=== PATIENT | female | born 1935 | race Caucasian/White ===

== ENCOUNTER 2016-08-20 11:22 | Day surgery (SDC) | payer MEDICARE, BC ==
--- NOTE | ~2016-08-20 | EGD ---
EGD REPORT [facility] [address] [id number] NAME: OMAYRA GARDINER : 39 STATUS : REG [facility]#: [id number] AGE: 81 ADM/REG DATE : 08/20/16 MR#: [id number] REPORT SERV DATE: 08/20/16 DICTATED BY: RITO FARMER DATE: 08/20/16 REPORT STATUS : Draft [facility]ANSCRIBED BY: [facility] DATE: 08/20/16 [facility] Patient Name: Omayra Gardiner Date of : 1935 Attending MD: RITO FARMER MD Procedure Date No Time: 08/20/2016 Procedure: Colonoscopy Indications: Screening for colorectal malignant neoplasm, Personal history of malignant neoplasm of the breast, Positive Cologuard test Referring MD: YOSELYN CARBALLO JR., MD Medicines: Propofol per Anesthesia Complications: No immediate complications. Estimated blood loss: None. Procedure: Pre-Anesthesia Assessment: - After reviewing the risks and benefits, the patient was deemed in satisfactory condition to undergo the procedure. - Prior to the procedure, a History and Physical was performed, and patient medications and allergies were reviewed. The patient's tolerance of previous anesthesia was also reviewed. The risks and benefits of the procedure and the sedation options and risks were discussed with the patient. All questions were answered, and informed consent was obtained. Prior Anticoagulants: The patient has taken no previous anticoagulant or antiplatelet agents. ASA Grade Assessment: II - A patient with mild systemic disease. After reviewing the risks and benefits, the patient was deemed in satisfactory condition to undergo the procedure. After I obtained informed consent, the scope was passed under direct vision. Throughout the procedure, the patient's blood pressure, pulse, and oxygen saturations were monitored continuously. The CF [id number] was introduced through the anus and advanced to the sigmoid colon but no further so it was withdrawn. The PCF [id number] was introduced through the anus and advanced to the cecum, identified by appendiceal orifice and ileocecal valve. The colonoscopy was performed with difficulty due to significant looping and a tortuous colon. Successful completion of the procedure was aided by withdrawing the scope and replacing with the pediatric colonoscope, straightening and shortening the scope to obtain bowel loop reduction and applying abdominal pressure. The ileocecal valve and appendiceal EGD REPORT [place] [id number] [facility]. [address] NAME: OMAYRA GARDINER : [birth year] STATUS : REG [facility]#: [id number] AGE: 81 ADM/REG DATE : 08/20/16 MR#: [id number] REPORT SERV DATE: 08/20/16 DICTATED BY: RITO FARMER DATE: 08/20/16 REPORT STATUS : Draft TRANSCRIBED BY: [employer] DATE: 08/20/16 orifice were photographed. The patient tolerated the procedure well. The quality of the bowel preparation was adequate. The bowel preparation used was split dose SUPREP. Scope withdrawal time was greater than 7 minutes. Findings: The perianal and digital rectal examinations were normal. Pertinent negatives include normal sphincter tone. Non-bleeding internal hemorrhoids were found during retroflexion and were small and Grade I (internal hemorrhoids that do not prolapse). Multiple small and large-mouthed diverticula were found in the entire colon. The exam was otherwise without abnormality. Impression: - Non-bleeding internal hemorrhoids. - Severe diverticulosis in the entire examined colon. - The examination was otherwise normal. Recommendation: - Discharge patient to home (ambulatory). - High fiber diet indefinitely. - Continue present medications. - No further routine screening colonoscopy due to advanced age. - Return to GI clinic PRN. - Patient has a contact number available for emergencies. The signs and symptoms of potential delayed complications were discussed with the patient. Return to normal activities tomorrow. Written discharge instructions were provided to the patient. Procedure Code(s): --- Professional --- G0121, Colorectal cancer screening; colonoscopy on individual not meeting criteria for high risk Diagnosis Code(s): --- Professional --- K64.0, First degree hemorrhoids K57.30, Diverticulosis of large intestine without perforation or abscess without bleeding Z12.11, Encounter for screening for malignant neoplasm of colon Z85.3, Personal history of malignant neoplasm of breast CPT copyright 2013 [employer]. All rights reserved. The codes documented in this report are preliminary and upon pre fabricator review may be revised to meet current compliance requirements. EGD REPORT [facility] [address] [address] NAME: OMAYRA GARDINER : 39 [place] : [place] [facility] [place] [id number] AGE: 81 ADM/REG DATE : 08/20/16 MR#: [id number] REPORT SERV DATE: 08/20/16 DICTATED BY: RITO FARMER DATE: 08/20/16 REPORT STATUS : Draft TRANSCRIBED BY: [employer] DATE: 08/20/16 RITO FARMER MD 08/20/2016 1:52 PM This report has been signed electronically. Number of Addenda: 0 Note Initiated On: 08/20/2016 12:01 PM Scope Withdrawal Time 0 hours 7 minutes 46 seconds [address] [id number]
[~2016-08-20 11:22] MED LIST: LEXAPRO5 MG PO; SEV VITAMINS PO
== END 2016-08-20 23:59 | disposition home health service (06) ==
LOC: DMU 11:22
PROVIDERS: Internal Medicine Gastroenterology
PROC: 0DJD8ZZ Inspection of Lower Intestinal Tract, Via Natural or Artificial Opening Endoscopic (ICD-10-PCS; principal; 2016-08-20 13:15)
DX: Z12.11 Encounter for screening for malignant neoplasm of colon (principal); K64.0 First degree hemorrhoids; K57.30 Diverticulosis of large intestine without perforation or abscess without bleeding; Z85.3 Personal history of malignant neoplasm of breast; F41.9 Anxiety disorder, unspecified; F32.9 Major depressive disorder, single episode, unspecified; Z98.890 Other specified postprocedural states; Z87.891 Personal history of nicotine dependence